=== PATIENT | female | born 1980 | race Caucasian/White ===

== ENCOUNTER 2016-08-05 13:59 | Emergency (ER) | payer MEDICAID ==
[~2016-08-05] VITALS: Ht 165.1 cm; Wt 78.0 kg
[~2016-08-05 13:59] MED LIST: EXCEDRINE PO
[2016-08-05 14:04] VITALS: BP_SYST 120
--- NOTE | 2016-08-05 14:09 | NUR ---
Pt placed to ER bed 02 and to gown. Pt report given to BECK Barry.
[2016-08-05] MEDS ORDERED: NACL 0.9% 1,000 ML IV ONE (14:12)
[2016-08-05] MEDS ORDERED: PROMETHAZINE HCL 25 MG/ML AMP IVP ONE (14:15)
--- NOTE | 2016-08-05 14:15 | NUR ---
Stable, alert and oriented x4. States has had diarrhea for 2 days with nausea after eating hamburger. Denies vomiting and pain. Abdomen soft and non distended. No other complaints/injuries per patient or noted. Addendum: 08/05/16 at 1505 by CHIRAG denies abdominal pain, states has had headache since this AM, denies any other pain. Denies injury.
--- NOTE | 2016-08-05 14:50 | NUR ---
# 20 gauge angiocath placed to RFA. Use of asceptic technique. Opsite placed over site. Blood return noted. Blood for lab drawn from site. Flushed with 10 cc of normal saline. No evidence of infiltration noted. Patient tolerated well.
[2016-08-05 15:02] LABS: HEMOGLOBIN 16.5 g/dL (12.0-16.0)
[2016-08-05 15:05] LABS: CALCIUM 9.3 mg/dL (8.4-11.0); CREATININE 1.15 mg/dL (0.55-1.30); POTASSIUM 3.7 mmol/L (3.5-5.1)
[2016-08-05 15:08] LABS: INR 1.1 (0.8-1.2); PROTHROMBIN TIME 11.7 SECS (9.5-12.5)
[2016-08-05 15:11] LABS: ALBUMIN 3.6 g/dL (3.4-4.8); TOTAL BILIRUBIN 0.9 mg/dL (0.0-1.0); TOTAL PROTEIN, SERUM 8.3 g/dL (6.4-8.3)
[2016-08-05 15:12] LABS: BASOPHILS % (AUTO) 0.3 % (0.0-2.0); EOSINOPHILS # (AUTO) 0.3 K/uL (0.0-0.4); EOSINOPHILS % (AUTO) 4.1 % (0.0-4.0); LYMPHOCYTES # (AUTO) 0.9 K/uL (1.0-5.5); LYMPHOCYTES % (AUTO) 11.7 % (20.5-51.5); MEAN CORPUSCULAR HEMOGLOBIN 29 pg (27-31); MEAN CORPUSCULAR HGB CONC 33 % (32-36); MEAN CORPUSCULAR VOLUME 88 fL (79.0-98.0); MONOCYTES # (AUTO) 0.4 K/uL (0.0-1.0); MONOCYTES % (AUTO) 5.2 % (1.7-9.3); NEUTROPHILS # (AUTO) 5.7 K/uL (1.8-7.7); NEUTROPHILS % (AUTO) 78.7 % (40.0-70.0); PLATELET COUNT (AUTO) 173 K/uL (130-430); RED BLOOD CELL COUNT(AUTO) 5.68 MIL/uL (4.2-6.2); RED CELL DISTRIBUTION WIDTH 12.8 % (9.0-15.0); WHITE BLOOD COUNT (AUTO) 7.3 K/uL (4.8-10.8)
--- NOTE | 2016-08-05 15:30 | NUR ---
Patient states that she no longer feels nauseated, stable.
--- NOTE | 2016-08-05 15:56 | NUR ---
Patient requests blanket. States that other gentile she is feeling improved. Provided clean catch urine at this time which is sent to lab.
[2016-08-05 16:06] LABS: BILIRUBIN,URINE NEGATIVE (NEGATIVE); BLOOD, URINE NEGATIVE (NEGATIVE); CLARITY/URINE CLEAR (CLEAR); COLOR,URINE YELLOW (YELLOW); GLUCOSE,URINE NEGATIVE (NEGATIVE); KETONES,URINE NEGATIVE (NEGATIVE); LEUKOCYTE ESTERASE ,URINE TRACE (NEGATIVE); NITRITE, URINE NEGATIVE (NEGATIVE); PROTEIN URINE TRACE (NEGATIVE)
[2016-08-05 16:10] LABS: BACTERIA,URINE FEW /HPF (None Seen); CALCIUM OXALATE CRYSTALS,UR 0-10 /HPF (None Seen); MUCUS,URINE None Seen /LPF (None Seen); RBC,URINE NONE SEEN /HPF (0-3)
[2016-08-05 16:30] VITALS: BP_SYST 128
--- NOTE | 2016-08-05 16:30 | NUR ---
Patient given written and verbal discharge instructions and verbalizes understanding. ER MD discussed with patient the results and treatment provided. Patient in stable condition. ID arm band removed. IV catheter removed intact and dressing applied, no active bleeding. Rx of Ranitidine given. Patient educated on pain management and to follow up with PMD. Pain Scale 2/10, tolerable. Opportunity for questions provided and answered.
== END 2016-08-05 16:30 | disposition home or self-care (01) ==
LOC: SED 13:59
DX: K52.9 Noninfective gastroenteritis and colitis, unspecified (principal); F17.200 Nicotine dependence, unspecified, uncomplicated; I10 Essential (primary) hypertension; I25.2 Old myocardial infarction; Z71.6 Tobacco abuse counseling; Z56.82 Military deployment status; Z87.890 Personal history of sex reassignment
CPT/HCPCS: 36415; 80053; 81000; 81025; 82150; 83690; 85025; 85610; 85730; 96361; 96374; 99284; J2550; J7030

== ENCOUNTER 2016-09-27 12:08 | Emergency (ER) | payer MEDICAID ==
[~2016-09-27] VITALS: Ht 167.6 cm; Wt 79.4 kg
[2016-09-27 12:13] VITALS: BP_SYST 120
--- NOTE | 2016-09-27 12:17 | NUR ---
Pt to bed 7
--- NOTE | 2016-09-27 12:20 | NUR ---
Dr. Tavarez at bedside for evaluation
--- NOTE | 2016-09-27 12:30 | NUR ---
Pt. to ER AAOx4 presented with sore throat fro three days, states that she is having difficulty speaking denies difficulty swallowing, states she went to urgent care however the meds prescribed were not effective
[2016-09-27 12:50] VITALS: BP_SYST 118
--- NOTE | 2016-09-27 12:50 | NUR ---
Patient given written and verbal discharge instructions and verbalizes understanding. ER MD Dr. Tavarez discussed with patient the results and treatment provided. Patient in stable condition. ID arm band removed. Rx of amoxicillin robitussin given. Patient educated on pain management and to follow up with PMD. Pain Scale 0/10 Opportunity for questions provided and answered.
== END 2016-09-27 12:50 | disposition home or self-care (01) ==
LOC: SED 12:10
DX: J02.9 Acute pharyngitis, unspecified (principal); I10 Essential (primary) hypertension; I25.2 Old myocardial infarction
CPT/HCPCS: 99283

== ENCOUNTER 2017-02-06 19:23 | Emergency (ER) | payer SELFPAY ==
[~2017-02-06] VITALS: Ht 167.6 cm; Wt 77.1 kg
[2017-02-06 19:31] VITALS: BP_SYST 127
[2017-02-06 19:55] VITALS: BP_SYST 130
== END 2017-02-06 19:55 | disposition home or self-care (01) ==
LOC: SED 19:23
DX: J04.0 Acute laryngitis (principal); I25.2 Old myocardial infarction; I10 Essential (primary) hypertension; F17.210 Nicotine dependence, cigarettes, uncomplicated; Z95.9 Presence of cardiac and vascular implant and graft, unspecified
CPT/HCPCS: 99283

== ENCOUNTER 2017-03-22 12:14 | Emergency (ER) | payer MEDICAID ==
[~2017-03-22] VITALS: Ht 172.7 cm; Wt 79.4 kg
[2017-03-22 12:23] VITALS: BP_SYST 120
[2017-03-22 13:05] VITALS: BP_SYST 120
== END 2017-03-22 13:05 | disposition home or self-care (01) ==
LOC: SED 12:14
DX: J32.9 Chronic sinusitis, unspecified (principal); I25.2 Old myocardial infarction; R19.7 Diarrhea, unspecified; I10 Essential (primary) hypertension; Z95.9 Presence of cardiac and vascular implant and graft, unspecified
CPT/HCPCS: 99283

== ENCOUNTER 2018-08-01 11:44 | Emergency (ER) | payer MEDICAID ==
[~2018-08-01] VITALS: Ht 167.6 cm; Wt 68.0 kg
[2018-08-01 11:45] VITALS: BP_SYST 118
[2018-08-01] MEDS ORDERED: KETOROLAC TROMETHAMINE 15 MG VIAL IVP ONE (13:00)
[2018-08-01] MEDS ORDERED: NACL 0.9% 1,000 ML IV ONE (13:00)
[2018-08-01 13:18] LABS: BASOPHILS # (AUTO) 0.1 K/uL (0.0-0.2); BASOPHILS % (AUTO) 0.7 % (0.0-2.0); EOSINOPHILS % (AUTO) 0.2 % (0.0-4.0); HEMOGLOBIN 15.6 g/dL (12.0-16.0); LYMPHOCYTES # (AUTO) 1.1 K/uL (1.0-5.5); LYMPHOCYTES % (AUTO) 8.3 % (20.5-51.5); MEAN CORPUSCULAR HEMOGLOBIN 29 pg (27-31); MEAN CORPUSCULAR HGB CONC 34 % (32-36); MEAN CORPUSCULAR VOLUME 85 fL (79.0-98.0); MONOCYTES % (AUTO) 8.1 % (1.7-9.3); NEUTROPHILS # (AUTO) 10.5 K/uL (1.8-7.7); NEUTROPHILS % (AUTO) 82.7 % (40.0-70.0); PLATELET COUNT (AUTO) 195 K/uL (130-430); RED BLOOD CELL COUNT(AUTO) 5.39 MIL/uL (4.2-6.2); RED CELL DISTRIBUTION WIDTH 15.6 % (9.0-15.0); WHITE BLOOD COUNT (AUTO) 12.7 K/uL (4.8-10.8)
[2018-08-01 13:34] LABS: BILIRUBIN,URINE NEGATIVE (NEGATIVE); BLOOD, URINE 2+ (NEGATIVE); COLOR,URINE YELLOW (YELLOW); GLUCOSE,URINE NEGATIVE (NEGATIVE); KETONES,URINE NEGATIVE (NEGATIVE); LEUKOCYTE ESTERASE ,URINE 2+ (NEGATIVE); NITRITE, URINE POSITIVE (NEGATIVE); PROTEIN URINE 1+ (NEGATIVE)
[2018-08-01 13:37] LABS: BACTERIA,URINE MODERATE /HPF (None Seen); CLARITY/URINE HAZY (CLEAR); WBC,URINE 50-80 /HPF (0-3)
[2018-08-01 13:38] LABS: MUCUS,URINE 1+ /LPF (None Seen)
[2018-08-01 13:39] LABS: ALBUMIN 3.1 g/dL (3.4-4.8); CALCIUM 9.1 mg/dL (8.4-11.0); CREATININE 1.2 mg/dL (0.55-1.30); INR 1.1 (0.8-1.2); POTASSIUM 3.9 mmol/L (3.5-5.1); PROTHROMBIN TIME 11.1 SECS (9.5-12.5); TOTAL BILIRUBIN 1.3 mg/dL (0.0-1.0)
[2018-08-01] MEDS ORDERED: cefTRIAXone 1 GM IVPB PREMIX 50 ML IV ONE (13:45)
[2018-08-01 14:45] VITALS: BP_SYST 140
== END 2018-08-01 14:45 | disposition home or self-care (01) ==
LOC: SED 11:44
DX: N10 Acute pyelonephritis (principal); R51 Headache; I25.2 Old myocardial infarction; I10 Essential (primary) hypertension
CPT/HCPCS: 36415; 71045; 80053; 81000; 83605; 84484; 85025; 85610; 85730; 87040; 87086; 87186; 93005; 96361; 96365; 96375; 99284; J0696; J1885; J7030

== ENCOUNTER 2020-07-24 16:58 | Emergency (ER) | payer MEDICAID ==
[~2020-07-24] VITALS: Ht 167.6 cm; Wt 81.6 kg
[2020-07-24 17:00] VITALS: BP_SYST 189
[2020-07-24 17:58] LABS: BASOPHILS # (AUTO) 0.1 K/uL (0.0-0.2); BASOPHILS % (AUTO) 1.4 % (0.0-2.0); EOSINOPHILS # (AUTO) 0.3 K/uL (0.0-0.4); HEMATOCRIT 47.8 % (36-48); HEMOGLOBIN 16.4 g/dL (12.0-16.0); LYMPHOCYTES # (AUTO) 1.6 K/uL (1.0-5.5); LYMPHOCYTES % (AUTO) 19.7 % (20.5-51.5); MEAN CORPUSCULAR HEMOGLOBIN 30 pg (27-31); MEAN CORPUSCULAR HGB CONC 34 % (32-36); MEAN CORPUSCULAR VOLUME 88 fL (79.0-98.0); MONOCYTES # (AUTO) 0.5 K/uL (0.0-1.0); MONOCYTES % (AUTO) 6.8 % (1.7-9.3); NEUTROPHILS # (AUTO) 5.5 K/uL (1.8-7.7); NEUTROPHILS % (AUTO) 68.1 % (40.0-70.0); PLATELET COUNT (AUTO) 183 K/uL (130-430); RED BLOOD CELL COUNT(AUTO) 5.44 MIL/uL (4.2-6.2); WHITE BLOOD COUNT (AUTO) 8.1 K/uL (4.8-10.8)
[2020-07-24 18:05] LABS: BILIRUBIN,URINE NEGATIVE (NEGATIVE); BLOOD, URINE 3+ (NEGATIVE); COLOR,URINE ORANGE (YELLOW); GLUCOSE,URINE NEGATIVE (NEGATIVE); KETONES,URINE NEGATIVE (NEGATIVE); LEUKOCYTE ESTERASE ,URINE 1+ (NEGATIVE); NITRITE, URINE POSITIVE (NEGATIVE); PH,URINE 6.5 (5.0-8.0); PROTEIN URINE 1+ (NEGATIVE)
[2020-07-24 18:23] LABS: PROTHROMBIN TIME 10.3 SECS (9.5-12.5)
[2020-07-24 18:38] LABS: CLARITY/URINE HAZY (CLEAR)
[2020-07-24 18:41] LABS: C-REACTIVE PROTEIN QUANT 1.1 mg/dL (0-0.5)
[2020-07-24 18:48] LABS: CALCIUM 9.1 mg/dL (8.4-11.0); CREATININE 1.43 mg/dL (0.55-1.30); POTASSIUM 4.1 mmol/L (3.5-5.1)
[2020-07-24 18:54] LABS: BACTERIA,URINE MODERATE /HPF (None Seen)
[2020-07-24 18:59] LABS: ALBUMIN 3.6 g/dL (3.4-4.8); TOTAL BILIRUBIN 0.6 mg/dL (0.0-1.0)
[2020-07-24 19:00] LABS: RBC,URINE 80-100 /HPF (0-3)
[2020-07-24 19:01] LABS: WBC,URINE 20-50 /HPF (0-3)
[2020-07-24 19:02] LABS: OTHER CASTS, URINE MIXED CELL CASTS 3+ /LPF (None Seen)
[2020-07-24] MEDS ORDERED: NITR-85 PO (19:54)
[2020-07-24] MEDS ORDERED: IBUP-1971 PO (19:54)
[2020-07-24] MEDS ORDERED: cefTRIAXone 1 GM in LIDOCAINE 1%, 20 ML MDV 2.1 ML IM ONE (20:00)
[2020-07-24] MEDS ORDERED: NITROFURANTOIN MONOHYD/M-CRYST 100 MG CAPSULE PO ONE ×2 (20:15→20:18)
[2020-07-24 20:24] VITALS: BP_SYST 189
== END 2020-07-24 20:24 | disposition home or self-care (01) ==
LOC: SED 16:58
DX: N12 Tubulo-interstitial nephritis, not specified as acute or chronic (principal); I10 Essential (primary) hypertension
CPT/HCPCS: 36415; 74176; 76376; 80053; 81000; 82150; 83605; 83690; 84703; 85025; 85610; 85730; 86140; 87086; 99284; J0696; J2001

== ENCOUNTER 2020-08-11 14:03 | Emergency (ER) | payer MEDICAID ==
[~2020-08-11] VITALS: Ht 167.6 cm; Wt 81.6 kg
[2020-08-11 14:03] VITALS: BP_SYST 128
[~2020-08-11 14:03] MED LIST changes: +IBUP-1971 PO; +NITR-85 PO
--- NOTE | 2020-08-11 14:03 | NUR ---
BROUGHT BACK TO BED #6 AND TRIAGED. REPORT GIVEN TO HEATHER
--- NOTE | 2020-08-11 14:05 | NUR ---
ER DR. WILKINSON AT THE BEDSIDE EXAMINING PT
--- NOTE | 2020-08-11 14:10 | NUR ---
PT CAME IN FROM HOME FOR UNRESOLVED UTI "FOR TWO MONTHS", REPORTS BURNING WITH URINATION. SHE STATES THAT SHE WOULD LIKE IV ANTIBIOTICS BECAUSE THE PO KEFLEX SHE HAS BEEN TAKING HAS NOT BEEN WORKING. PT IS AMBULATORY, AAOX4, V/S STABLE
--- NOTE | 2020-08-11 14:25 | NUR ---
PT PROVIDED URINE SAMPLE, SPECIMEN COLLECTED AND SENT TO THE LAB
[2020-08-11 14:49] LABS: BILIRUBIN,URINE NEGATIVE (NEGATIVE); CLARITY/URINE CLEAR (CLEAR); COLOR,URINE YELLOW (YELLOW); GLUCOSE,URINE NEGATIVE (NEGATIVE); KETONES,URINE NEGATIVE (NEGATIVE); LEUKOCYTE ESTERASE ,URINE 2+ (NEGATIVE); NITRITE, URINE NEGATIVE (NEGATIVE); PROTEIN URINE NEGATIVE (NEGATIVE); UROBILINOGEN,URINE 0.2 (0.2-1.0)
--- NOTE | 2020-08-11 15:00 | NUR ---
Patient resting quietly. No acute distress noted. Vital signs within normal range.
[2020-08-11 15:03] LABS: BLOOD, URINE TRACE (NEGATIVE)
[2020-08-11 15:07] LABS: BACTERIA,URINE None Seen /HPF (None Seen); WBC,URINE 50-80 /HPF (0-3)
[2020-08-11 15:08] LABS: YEAST,URINE None Seen /HPF (None Seen)
--- NOTE | 2020-08-11 16:00 | NUR ---
Patient resting quietly. No acute distress noted. Vital signs within normal range.
--- NOTE | 2020-08-11 17:10 | NUR ---
# 20 gauge angiocath placed to LFA. Use of asceptic technique. Opsite placed over site. Blood return noted. Blood for lab drawn from site. Flushed with 10 cc of normal saline. No evidence of infiltration noted. Patient tolerated well.
[2020-08-11] MEDS ORDERED: LEVAQUIN PO (17:12)
[2020-08-11] MEDS: cefTRIAXone 1 GM IVPB PREMIX 50 ML IV ONE (17:18)
[2020-08-11] MEDS: NACL 0.9% 1,000 ML IV ONE (17:19)
[2020-08-11 18:02] VITALS: BP_SYST 128
--- NOTE | 2020-08-11 18:05 | NUR ---
Patient given written and verbal discharge instructions and verbalizes understanding. ER MD discussed with patient the results and treatment provided. Patient in stable condition. ID arm band removed. IV catheter removed intact and dressing applied, no active bleeding. Rx of LEVAQUIN given. Patient educated on pain management and to follow up with PMD. Pain Scale 0/10. Opportunity for questions provided and answered. Medication side effect fact sheet provided.
== END 2020-08-11 18:05 | disposition home or self-care (01) ==
LOC: SED 14:03
DX: N39.0 Urinary tract infection, site not specified (principal); I10 Essential (primary) hypertension; I25.2 Old myocardial infarction; N28.9 Disorder of kidney and ureter, unspecified; Z79.899 Other long term (current) drug therapy
CPT/HCPCS: 81000; 87086; 96365; 99284; J0696; J7030

== ENCOUNTER 2020-11-21 15:29 | Emergency (ER) | payer MEDICAID ==
[~2020-11-21] VITALS: Ht 167.6 cm; Wt 81.6 kg
[~2020-11-21 15:29] MED LIST changes: +LEVAQUIN PO
[2020-11-21 16:10] VITALS: BP_SYST 147
[2020-11-21 17:03] LABS: BASOPHILS # (AUTO) 0.1 K/uL (0.0-0.2); BASOPHILS % (AUTO) 1.3 % (0.0-2.0); EOSINOPHILS # (AUTO) 0.3 K/uL (0.0-0.4); EOSINOPHILS % (AUTO) 3.4 % (0.0-4.0); HEMATOCRIT 48.1 % (36-48); HEMOGLOBIN 16.6 g/dL (12.0-16.0); LYMPHOCYTES # (AUTO) 1.5 K/uL (1.0-5.5); LYMPHOCYTES % (AUTO) 17.5 % (20.5-51.5); MEAN CORPUSCULAR HEMOGLOBIN 31 pg (27-31); MEAN CORPUSCULAR HGB CONC 35 % (32-36); MEAN CORPUSCULAR VOLUME 89 fL (79.0-98.0); MONOCYTES # (AUTO) 0.6 K/uL (0.0-1.0); MONOCYTES % (AUTO) 7.1 % (1.7-9.3); NEUTROPHILS % (AUTO) 70.7 % (40.0-70.0); PLATELET COUNT (AUTO) 190 K/uL (130-430); RED BLOOD CELL COUNT(AUTO) 5.43 MIL/uL (4.2-6.2); WHITE BLOOD COUNT (AUTO) 8.5 K/uL (4.8-10.8)
[2020-11-21 17:46] LABS: ERYTHROCYTE SEDIMENTATION RATE 18 MM/HR (0-20)
[2020-11-21 18:06] LABS: CALCIUM 9.4 mg/dL (8.4-11.0); CREATININE 1.25 mg/dL (0.55-1.30)
[2020-11-21 18:11] LABS: ALBUMIN 3.3 g/dL (3.4-4.8); C-REACTIVE PROTEIN QUANT 2.3 mg/dL (0-0.5); TOTAL BILIRUBIN 0.6 mg/dL (0.0-1.0); URIC ACID 9.9 mg/dL (2.4-7.0)
[2020-11-21 18:25] LABS: PROTHROMBIN TIME 10.2 SECS (9.5-12.5)
[2020-11-21] MEDS: KETOROLAC TROMETHAMINE 60 MG/2 ML VIAL IM ONE (18:42)
[2020-11-21] MEDS ORDERED: IBUP-1971 PO (18:53)
[2020-11-21] MEDS ORDERED: HYDR-3917 PO (18:53)
[2020-11-21 19:22] VITALS: BP_SYST 147
== END 2020-11-21 19:22 | disposition home or self-care (01) ==
LOC: SED 15:29
DX: M79.671 Pain in right foot (principal); I10 Essential (primary) hypertension; I25.2 Old myocardial infarction; Z79.899 Other long term (current) drug therapy
CPT/HCPCS: 36415; 73630; 80053; 84550; 84703; 85025; 85610; 85651; 85730; 86140; 96372; 99284; J1885

== ENCOUNTER 2022-08-11 22:35 | Emergency (ER) | payer MEDICAID ==
[~2022-08-11] VITALS: Ht 167.6 cm; Wt 82.6 kg
[~2022-08-11 22:35] MED LIST changes: +HYDR-3917 PO
[2022-08-11 22:40] VITALS: BP_SYST 129
[2022-08-12 00:06] LABS: BILIRUBIN,URINE NEGATIVE (NEGATIVE); BLOOD, URINE 2+ (NEGATIVE); COLOR,URINE YELLOW (YELLOW); GLUCOSE,URINE NEGATIVE (NEGATIVE); KETONES,URINE NEGATIVE (NEGATIVE); LEUKOCYTE ESTERASE ,URINE TRACE (NEGATIVE); NITRITE, URINE NEGATIVE (NEGATIVE); PROTEIN URINE NEGATIVE (NEGATIVE); UROBILINOGEN,URINE 0.2 (0.2-1.0)
[2022-08-12 00:07] LABS: CLARITY/URINE HAZY (CLEAR)
[2022-08-12 00:47] LABS: BACTERIA,URINE None Seen /HPF (None Seen)
[2022-08-12] MEDS ORDERED: NACL 0.9% 1,000 ML IV ONE (01:00)
[2022-08-12] MEDS ORDERED: cefTRIAXone 1 GM in LIDOCAINE 1%, 20 ML MDV 2.1 ML IM ONE (01:00)
[2022-08-12] MEDS ORDERED: AZITHROMYCIN 250 MG TABLET PO ONE (01:00)
[2022-08-12 01:24] LABS: BASOPHILS # (AUTO) 0.1 K/uL (0.0-0.2); BASOPHILS % (AUTO) 1.3 % (0.0-2.0); EOSINOPHILS # (AUTO) 0.2 K/uL (0.0-0.4); EOSINOPHILS % (AUTO) 2.9 % (0.0-4.0); HEMATOCRIT 43.5 % (36-48); HEMOGLOBIN 14.6 g/dL (12.0-16.0); LYMPHOCYTES # (AUTO) 2.2 K/uL (1.0-5.5); LYMPHOCYTES % (AUTO) 28.7 % (20.5-51.5); MEAN CORPUSCULAR HEMOGLOBIN 31 pg (27-31); MEAN CORPUSCULAR HGB CONC 34 % (32-36); MEAN CORPUSCULAR VOLUME 91 fL (79.0-98.0); MONOCYTES # (AUTO) 0.7 K/uL (0.0-1.0); MONOCYTES % (AUTO) 8.8 % (1.7-9.3); NEUTROPHILS # (AUTO) 4.4 K/uL (1.8-7.7); NEUTROPHILS % (AUTO) 58.3 % (40.0-70.0); PLATELET COUNT (AUTO) 190 K/uL (130-430); RED BLOOD CELL COUNT(AUTO) 4.76 MIL/uL (4.2-6.2); RED CELL DISTRIBUTION WIDTH 16.8 % (9.0-15.0); WHITE BLOOD COUNT (AUTO) 7.6 K/uL (4.8-10.8)
[2022-08-12 01:26] LABS: ALBUMIN 3.3 g/dL (3.4-4.8); CALCIUM 8.4 mg/dL (8.4-11.0); CREATININE 1.11 mg/dL (0.55-1.30); TOTAL BILIRUBIN 0.7 mg/dL (0.0-1.0)
[2022-08-12 01:43] VITALS: BP_SYST 121
[2022-08-12] MEDS ORDERED: LOPE2CAP PO (01:53)
[2022-08-12] MEDS ORDERED: PHEN-726 PO (01:53)
== END 2022-08-12 02:18 | disposition home or self-care (01) ==
LOC: SED 22:35
DX: K52.9 Noninfective gastroenteritis and colitis, unspecified (principal); R30.0 Dysuria; I10 Essential (primary) hypertension; Z79.899 Other long term (current) drug therapy
CPT/HCPCS: 99283; 80053; 81000; 83690; 85025; 87086; 36415; 96372; J0696; J2001; Q0144

== ENCOUNTER 2022-10-12 17:33 | Emergency (ER) | payer MEDICAID ==
[~2022-10-12] VITALS: Ht 172.7 cm; Wt 79.4 kg
[~2022-10-12 17:33] MED LIST changes: +LOPE2CAP PO; +PHEN-726 PO
[2022-10-12 18:09] VITALS: BP_SYST 128
--- NOTE | 2022-10-12 20:00 | NUR ---
PT CALLED MULTIPLE TIME BUT NO RESPONSE. NOTIFIED PT LEFT PRIOR TO BEING SEEN
== END 2022-10-12 20:00 | disposition left against medical advice (07) ==
LOC: SED 17:33
DX: R30.0 Dysuria (principal); R10.9 Unspecified abdominal pain; Z53.21 Procedure and treatment not carried out due to patient leaving prior to being seen by health care provider
CPT/HCPCS: 99281